=== PATIENT | male | born 1975 | race American Indian/Alaskan Native ===

== ENCOUNTER 2021-10-03 11:14 | Emergency (ER) | payer OTHER ==
[2021-10-03] MEDS ORDERED: MORPHINE 4 MG/1 ML INJ IV ONE (11:51)
[2021-10-03] MEDS ORDERED: ONDANSETRON 4 MG/2 ML INJ IV ONE (11:51)
[2021-10-03] MEDS ORDERED: LIDOCAINE (1%) 10 MG/1 ML VIAL 20 ML MDV INFILTRATI ONE ×2 (11:52→13:53)
[2021-10-03] MEDS ORDERED: TETANUS,DIPH,PERTUSS(ACELL) VACCINE 0.5 ML SYRINGE IM ONE (11:52)
--- NOTE | 2021-10-03 12:22 | Emergency Department Report ---
Upper Extremity - HPI Stated Complaint: LACERATION RT HAND/TIP OF FINGER CUT OFF Time Seen by Provider: 10/03/21 11:52 Upper Extremity: Right Middle Finger (finger tip laceration/amputation), Right Ring Finger Occurred When: Today (about 30mins [employer]) Mechanism: Other (Patient states that he was at work, and excellently cut his finger using a circular saw while she was cutting wood) Severity: severe Symptoms: Yes Pain with Movement, Yes Deformity, Yes Numbness, Yes Weakness, No Limited Range of Movement, No Swelling, No Bruising/Ecchymosis, No Laceration or Abrasion Other History: Patient is left-hand dominant. He is not up-to-date on his tetanus. ED Review of Systems ROS: Stated complaint: LACERATION RT HAND/TIP OF FINGER CUT OFF Other details as noted in HPI Comment: All other systems reviewed and negative ENT: denies: ear pain, throat pain Respiratory: denies: cough, shortness of breath, wheezing Endocrine: no symptoms reported Musculoskeletal: arthralgia Skin: other (Fingertip laceration/amputation) Neurological: denies: headache, weakness, numbness, paresthesias, confusion, abnormal gait, vertigo Psychiatric: denies: anxiety, depression, auditory hallucinations, visual hallucinations, homicidal thoughts, suicidal thoughts Hematological/Lymphatic: denies: easy bleeding, easy bruising, swollen glands ED Past Medical Hx - Medications Home Medications: Home Medications Medication Instructions Recorded Confirmed Last Taken Type HYDROcodone/APAP 7.5-325 [Bureau 1 each PO Q6HR PRN #10 tablet 10/03/21 Unknown Rx 7.5/325] cephALEXin [Keflex] 500 mg PO Q8HR #21 cap 10/03/21 Unknown Rx Upper Extremity Exam - Exam General: Vital signs noted. No distress. Alert and acting appropriately. Head and Torso: No HEENT Abnormality, No Neck Tenderness, No Chest/Lungs Abnormality, No Abdominal Tenderness, No Back Tenderness Shoulder Exam: Yes Normal Range of Motion in Shoulder, No Shoulder Tenderness, No Clavicle Tenderness, No Shoulder Deformity, No AC Joint Tenderness Arm Exam: No Arm/Humerus Tenderness, No Arm Deformity Elbow: Yes Normal Range of Motion in Elbow, No Elbow Tenderness, No Elbow Deformity Forearm: No Forearm Tenderness, No Forearm Deformity, No Pain with Pronation, No Pain with Supination Hand: Yes Digit Tenderness, Yes Digit(s) Deformity CMS Exam: Yes Broken Skin (Fingertip amputation noted to the third and fourth finger of the right hand. The distal part of the nail and nailbed of both fingers are also amputated. The remaining proximal aspect of the nail intact. No apparent exposed bone. Tissue is macerated. Active bleeding noted but it is controlled with pressure. Rings noted to both fingers and he was successfully removed. Patient does have full range of motion of the third and fourth finger but it is painful.), Yes Normal Distal Sensation - Nerve Block Consent Obtained: verbal consent Time Out Performed: No Local Anesthetic Used: Lidocaine 1% Amount of anesthesia used: 15 (10 cc was initially administered, then about 2 hours later another 5 cc for pain control) Side: right Nerve Blocks: digital Procedure Successful: Yes Complications: none Patient Tolerated Procedure: well Additional Comments: Patient tolerated procedure well without any complications. ED Medical Decision Making - Radiology Data Radiology results: report reviewed Patient Name: ABIOLA RED Gender: Male Date of : 1975 Home Phone: Referring Provider: ABNER VELA Organization: [facility] Accession Number: [id number] Requested Date: October 03, 2021 12:01 Report Status: Final Requested Procedure: 1 Procedure Description: XR hand 3+V RT Modality: XR Findings Reporting MD: Harry Eckert Dictation Time: October 03, 2021 11:46 Document Management Consultant: Not available Spark Plug Tester Date: RIGHT HAND 3 VIEWS INDICATION: 3,4 digit amputation. COMPARISON: None. IMPRESSION: A bandage has been applied overlying the third and fourth digits. Soft tissue and bony amputation of the distal tuft of the third digit is identified. Soft tissue amputation of the distal fourth digit is identified. The remaining bony structures are intact. No joint pathology is appreciated. No radiodense foreign body is detected in the soft tissues. Signer Name: Harry Eckert Jr, MD Signed: 10/03/2021 11:46 AM Workstation Name: [id number] - Medical Decision Making 1417: X-rays reviewed. Patient is on Eliquis secondary to his past history of PE and as a result he had moderate amount of bleeding to the wounds but with pressure dressing bleeding is now controlled. Patient received 2 g of IV Ancef. His tetanus was updated. Discussed case with Dr. De Guzman, recommend patient follow-up in the office. Discussed x-ray results, and recommendation for him to follow-up in office with orthopedic doctor this week. Patient expressed understanding agree with plan. Patient stable at time of discharge. Critical care attestation.: If time is entered above; I have spent that time in minutes in the direct care of this critically ill patient, excluding procedure time. ED Disposition Clinical Impression: Finger amputation, traumatic Disposition: 01 HOME / SELF CARE / HOMELESS Is pt being admited?: No Does the pt Need Aspirin: No Condition: Stable Instructions: Traumatic Finger Amputation Additional Instructions: Leave the pressure dressing on until follow-up with sales specialist. Take the hydrocodone as prescribed to help with pain. It is important that you take the antibiotics as prescribed until completion. learning design specialist will be provided to you on your discharge instructions. I recommend that you call for an appointment and follow-up this week. Return to the ER if your symptoms changes or worsens in any way. Prescriptions: cephALEXin [Keflex] 500 mg PO Q8HR #21 cap HYDROcodone/APAP 7.5-325 [Bureau 7.5/325] 1 each PO Q6HR PRN #10 tablet PRN Reason: Pain Referrals: PRIMARY CARE, [Primary Care Provider] - 3-5 Days Forms: Work/School Release Form(ED) Time of Disposition: 14:21
[2021-10-03 14:35] VITALS: BP 140/88
--- NOTE | 2021-10-03 23:52 | XRay Report ---
RIGHT HAND 3 VIEWS INDICATION: 3,4 digit amputation. COMPARISON: None. IMPRESSION: A bandage has been applied overlying the third and fourth digits. Soft tissue and bony a mputation of the distal tuft of the third digit is identified. Soft tissue amputation of the distal f ourth digit is identified. The remaining bony structures are intact. No joint pathology is appreciate d. No radiodense foreign body is detected in the soft tissues. Signer Name: Harry Eckert Jr, MD Signed: 10/03/2021 12:46 PM Workstation Name: [id number]
== END 2021-10-03 14:35 | disposition home or self-care (01) ==
LOC: ED 11:14
DX: S68.112A Complete traumatic metacarpophalangeal amputation of right middle finger, initial encounter (principal); S68.114A Complete traumatic metacarpophalangeal amputation of right ring finger, initial encounter; W27.0XXA Contact with workbench tool, initial encounter; Y93.89 Activity, other specified; Y92.89 Other specified places as the place of occurrence of the external cause; Y99.0 Civilian activity done for income or pay
CPT/HCPCS: 64450; 73130; 90471; 90715; 96365; 96375; 99283; J0690; J2270; J2405; J3490; 96372